=== PATIENT | female | born 1960 | race American Indian/Alaskan Native ===

== ENCOUNTER 2019-10-11 14:31 | Emergency (ER) | payer BC ==
--- NOTE | 2019-10-11 15:16 | Emergency Department Report ---
Blank Doc - Documentation Documentation: 59-year-old female that presents with cp and sob. This initial assessment/diagnostic orders/clinical plan/treatment(s) is/are subject to change based on patient's health status, clinical progression and re- assessment by fellow clinical providers in the ED. Further treatment and workup at subsequent clinical providers discretion. Patient/guardians urged not to elope from the ED as their condition may be serious if not clinically assessed and managed. Initial orders include: 1- Patient sent to [facility] for further evaluation and treatment 2- labs 3-EKG 4- CXR
--- NOTE | 2019-10-11 15:56 | XRay Report ---
CHEST 2 VIEWS INDICATION: Chest Pain. COMPARISON: None. FINDINGS: Support devices: None. Heart: Within normal limits. Pulmonary vasculature: Normal. Lungs/pleura: No acute air space or interstitial disease. No pneumothorax. Additional findings: Aortic tortuosity. IMPRESSION: 1. No CHF or pneumonia. 2. Hypertensive/atherosclerotic changes in the aorta. Signer Name: Fco Richard MD Signed: 10/11/2019 3:51 PM Workstation Name: [id number]
[2019-10-11 16:17] LABS: INR 0.98 (0.87-1.13)
[2019-10-11 16:18] LABS: Partial Thromboplastin Time 34.1 Sec. (24.2-36.6)
--- NOTE | 2019-10-11 16:21 | Emergency Department Report ---
<AGUSTIN CORADO - Last Filed: 10/11/19 18:29> ED Chest Pain HPI - General Chief Complaint: Chest Pain Stated Complaint: CHEST PAIN Time Seen by Provider: 10/11/19 15:10 Source: patient Mode of arrival: Ambulatory Limitations: No Limitations - History of Present Illness Initial Comments: Patient is a 59-year-old female presents emergency room with complaints of substernal chest pain that began 3 months ago. She states that the chest pain radiates to her back. She states that the pain became worse in the last 2 days. She states it is a pressure and a squeezing pain. She states that she has exertional shortness of breath. She denies any nausea, vomiting, diaphoresis, pleuritic chest pain, leg swelling. She denies any recent travel, recent surgery, hormone use, history of cancer. She has a past medical history of h ypertension, hyperlipidemia, and MVP. She has an allergy to sulfa and codeine. pt last had a stress test in 2013 which was normal with EF greater than 55%. Severity scale (0 -10): 0 - Related Data Home Medications Medication Instructions Recorded Confirmed Last Taken lisinopriL [Zestril] 5 mg PO QDAY 01/18/14 01/18/14 01/18/14 Previous Rx's Medication Instructions Recorded Last Taken Type Pantoprazole [Protonix] 20 mg PO BID #60 tablet 01/19/14 Unknown Rx Simvastatin 20 mg PO QHS #30 tablet 01/19/14 Unknown Rx Allergies Allergy/AdvReac Type Severity Reaction Status Date / Time codeine Allergy Swelling Verified 01/18/14 12:04 Sulfa (Sulfonamide Allergy Swelling Verified 01/18/14 12:04 Antibiotics) Heart Score - HEART Score History: Slightly suspicious EKG: Normal Age: 45-65 Risk factors: > 3 risk factors or hx of atherosclerotic disease Troponin: < normal limit HEART Score: 3 ED Review of Systems Comment: All other systems reviewed and negative ED Past Medical Hx - Past Medical History Previous Medical History?: Yes Hx Hypertension: Yes Hx Congestive Heart Failure: No Hx Diabetes: No Hx Asthma: No Hx COPD: No Hx HIV: No Additional medical history: heart murmur, mvp, high cholesterol - Surgical History Past Surgical History?: Yes Additional Surgical History: fibroids - Social History Smoking Status: Never Smoker Substance Use Type: None - Medications Home Medications: Home Medications Medication Instructions Recorded Confirmed Last Taken Type lisinopriL [Zestril] 5 mg PO QDAY 01/18/14 01/18/14 01/18/14 History Pantoprazole [Protonix] 20 mg PO BID #60 tablet 01/19/14 Unknown Rx Simvastatin 20 mg PO QHS #30 tablet 01/19/14 Unknown Rx ED Physical Exam - General Limitations: No Limitations LYNDSEY score - Lyndsey Score Age > 65: (0) No Aspirin use within the Past 7 Days: (0) No 3 or more CAD Risk Factors: (1) Yes 2 or more Angina events in past 24 hrs: (1) Yes Known CAD with more than 50% Stenosis: (0) No Elevated Cardiac Markers: (0) No ST Deviation Greater than 0.5mm: (0) No LYNDSEY Score: 2 ED Medical Decision Making - Lab Data Result diagrams: 10/11/19 16:58 10/11/19 15:28 - Medical Decision Making 6:30 PM signed out to Dr. Smiley, pending CTA chest and abdomen ED Disposition Clinical Impression: Chest pain Disposition: DC-01 TO HOME OR SELFCARE Condition: Stable Instructions: Chest Pain (ED) Referrals: [facility] [Provider Group] - 3-5 Days <MICHAEL SMILEY - Last Filed: 10/11/19 19:39> ED Review of Systems ROS: Stated complaint: CHEST PAIN Other details as noted in HPI ED Course Vital Signs 10/11/19 10/11/19 10/11/19 14:36 16:00 16:01 Temperature 97.9 F Pulse Rate 76 82 Respiratory 16 16 15 Rate Blood Pressure 163/89 147/87 O2 Sat by Pulse 99 99 Oximetry 10/11/19 10/11/19 10/11/19 17:00 18:30 19:00 Temperature Pulse Rate 78 78 Respiratory 20 18 Rate Blood Pressure 146/73 133/71 O2 Sat by Pulse 100 99 97 Oximetry ED Medical Decision Making - Lab Data Result diagrams: 10/11/19 16:58 10/11/19 15:28 - EKG Data -: EKG Interpreted by Ga EKG shows normal: sinus rhythm Rate: normal - EKG Data Interpretation: no acute changes - Radiology Data Radiology results: report reviewed - Medical Decision Making Patient is a 59-year-old female presents emergency room with complaints of substernal chest pain that began 3 months ago. She states that the chest pain radiates to her back. She states that the pain became worse in the last 2 days. She states it is a pressure and a squeezing pain. She states that she has exertional shortness of breath. She denies any nausea, vomiting, diaphoresis, pleuritic chest pain, leg swelling. She denies any recent travel, recent surgery, hormone use, history of cancer. She has a past medical history of hypertension, hyperlipidemia, and MVP. She has an allergy to sulfa and codeine. pt last had a stress test in 2013 which was normal with EF greater than 55%. Patient remained stable in the emergency room. Patient stated that her chest pain is completely resolved. She also added that pain increased with moving her torso however she denied any recent injury. EKG showed no ST elevation or depression. Labs reviewed and is unremarkable including 2 sets of troponin. CTA chest and CT abdomen is negative for pulmonary embolism, aortic dissection or pneumonia or any other significant pathology. Patient advised to follow up with her primary care physician in the next 2-3 days and to return to the ER if symptoms are not improved. Critical care attestation.: If time is entered above; I have spent that time in minutes in the direct care of this critically ill patient, excluding procedure time. ED Disposition Is pt being admited?: No
[2019-10-11 16:33] LABS: Alanine Aminotransferase 20 units/L (7-56); Albumin 4.2 g/dL (3.9-5); BUN/Creatinine Ratio 20; Blood Urea Nitrogen 14 mg/dL (7-17); Hemolysis Index 12
[2019-10-11 17:26] LABS: Hematocrit 38.5 % (30.3-42.9); Hemoglobin 12.6 gm/dl (10.1-14.3); Mean Corpuscular HGB Conc 33 % (30-34); Mean Corpuscular Volume 89 fl (79-97); Platelet Count 327 K/mm3 (140-440); Red Blood Count 4.32 M/mm3 (3.65-5.03); Red Cell Distribution Width 13.9 % (13.2-15.2)
--- NOTE | 2019-10-11 18:54 | Cat Scan Report ---
CT angio chest INDICATION / CLINICAL INFORMATION: CP radiates to the back. TECHNIQUE: Axial CT images were obtained after injection of Omnipaque 350, 100 cc IV contrast using CTA protocol . 3 plane MIP / 3D reconstructions were produced. All CT scans at this location are performed using C T dose reduction for ALARA by means of automated exposure control. COMPARISON: None available. FINDINGS: Negative for aneurysm, dissection or pulmonary embolus. The lungs contain no mass, infiltrate or pleu ral fluid. Imaging of the mediastinum demonstrates no mass, adenopathy or hematoma. IMPRESSION: Negative for aneurysm, dissection or pneumonia. Signer Name: Tyler King MD Signed: 10/11/2019 6:50 PM Workstation Name: [id number]
--- NOTE | 2019-10-11 19:15 | Cat Scan Report ---
CT angio abdomen pelvis INDICATION / CLINICAL INFORMATION: CP radiates to the back. TECHNIQUE: Axial CT images were obtained after injection of Omnipaque 350, 100 cc IV contrast using CTA protocol . 3 plane MIP / 3D reconstructions were produced. All CT scans at this location are performed using C T dose reduction for ALARA by means of automated exposure control. COMPARISON: None available. CTA ABDOMEN: Aneurysm or dissection. The renal arteries and mesenteric vessels are widely patent The parenchymal organs are unremarkable other than a large fatty liver. Negative for abdominal inflam matory process. CTA PELVIS: The iliac vessels are widely patent. Negative for pelvic mass or inflammation. Calcified uterine fibroids are noted. IMPRESSION: Negative for aneurysm, dissection or inflammatory process. Signer Name: Tyler King MD Signed: 10/11/2019 7:10 PM Workstation Name: [id number]
[2019-10-11 20:19] VITALS: BP 139/79
== END 2019-10-11 20:18 | disposition home or self-care (01) ==
LOC: ED 14:31
DX: R07.89 Other chest pain (principal); R06.02 Shortness of breath; I10 Essential (primary) hypertension
CPT/HCPCS: 36415; 71046; 71275; 74174; 80053; 84484; 85025; 85610; 85730; 93005; 93010; 99285; Q9967